=== PATIENT | female | born 2005 | race Two or more races ===

== ENCOUNTER 2025-03-30 18:24 | Emergency (ER) | payer BC ==
[2025-03-30] MEDS: Lidocaine 1% with EPINEPHrine 1:200,000 30 ML SDV INJECT ONE (19:12)
== END 2025-03-30 19:44 | disposition home or self-care (01) ==
LOC: MW.ED 18:24
DX: L02.411 Cutaneous abscess of right axilla (principal)
CPT/HCPCS: 10060; 99283; J2004

== ENCOUNTER 2025-05-02 14:38 | Emergency (ER) | payer BC ==
[2025-05-02 15:16] LABS: BASOPHILS ABSOLUTE AUTO 0.03 K/uL (0.00-0.20); BASOPHILS PERCENT AUTO 0.4 % (0.0-1.0); EOSINOPHILS ABSOLUTE AUTO 0.06 K/uL (0.00-0.45); EOSINOPHILS PERCENT AUTO 0.9 % (0.0-6.0); IMMATURE GRAN ABSOLUTE AUTO 0.01 K/uL (0.00-0.05); IMMATURE GRAN PERCENT AUTO 0.1 % (0.0-0.4); LYMPHOCYTES ABSOLUTE AUTO 1.82 K/uL (1.00-4.80); LYMPHOCYTES PERCENT AUTO 27.2 % (24.0-44.0); MEAN PLATELET VOLUME 9.9 fL (9.4-12.3); MONOCYTES ABSOLUTE AUTO 0.49 K/uL (0.00-0.80); MONOCYTES PERCENT AUTO 7.3 % (0.0-8.0); NEUTROPHILS ABSOLUTE AUTO 4.29 K/uL (1.80-7.70); NEUTROPHILS PERCENT AUTO 64.1 % (41.0-71.0); NRBC ABSOLUTE 0.00 K/uL (0.00-0.02); NRBC PERCENT 0.0 /100WBC (0.0-0.2); PLATELET COUNT,PLT 292 K/uL (150-400); RED BLOOD CELL COUNT 4.46 M/uL (4.10-5.30); WHITE BLOOD CELL COUNT,WBC 6.70 K/uL (3.9-11.3)
[2025-05-02 15:47] LABS: A/G RATIO 1.4 (0.9-1.6); ALANINE AMINOTRANSFERASE,ALT 29.0 IU/L (14-63); ASPARTATE AMNIOTRANSFERASE,AST 16.0 IU/L (15-37); BILIRUBIN TOTAL 0.4 mg/dL (0.2-1.0); BLOOD UREA NITROGEN,BUN 9.0 mg/dL (7.0-18.0); CARBON DIOXIDE,CO2 27.4 mmol/L (21.0-32.0); CHLORIDE,CL 106.0 mmol/L (98-107); CREATININE 0.7 mg/dL (0.6-1.0); EST CRCL DRUG DOSING (CG) 95.93 mL/min; ESTIMATED GFR 126.0 mL/min (>60); GLUCOSE RANDOM 95.0 mg/dL (74-106); HCG QUANTITATIVE 14.0 mIU/mL; POTASSIUM,K 3.6 mmol/L (3.5-5.1); PROTEIN TOTAL,TP 6.7 g/dL (6.4-8.2); SODIUM,NA 138.0 mmol/L (136-145)
[2025-05-02 16:50] LABS: GLUCOSE,URINE NEGATIVE (NEGATIVE); OCCULT BLOOD,URINE LARGE (NEGATIVE)
[2025-05-02 16:56] LABS: APPEARANCE,URINE HAZY
[2025-05-02 16:59] LABS: EPITHELIAL CELLS,URINE FEW (NONE-FEW)
== END 2025-05-02 17:42 | disposition home or self-care (01) ==
LOC: MW.ED 14:38
DX: Z32.01 Encounter for pregnancy test, result positive (principal)
CPT/HCPCS: 36415; 76801; 76801-26; 80053; 81001; 84702; 85025; 86900; 86901; 87086; 99283; 99284